=== PATIENT | female | born 1935 | race Caucasian/White ===

== ENCOUNTER 2023-10-06 15:02 | Emergency (ER) | payer MEDICARE, SELFPAY ==
[2023-10-06] VITALS (8 sets, daily range): BP systolic 132–153; BP diastolic 69–89; PULSE 68–118; RESP 14–28; TEMP 36.6; O2SAT 94–98; BMI 22.4
--- NOTE | 2023-10-06 15:36 | EX.ED.DYSGE1 ---
HPI <ANGÉLICA Barreto - Last Filed: 10/06/23 22:15> History of Present Illness Chief Complaint: Shortness of Breath Narrative Narrative: Patient is an 88-year-old female with history of hypertension, hyperlipidemia who is currently getting treated for multiple myeloma at the [facility]. Patient received a chemo shot every Sunday, last shot was 4 days ago, that was her first shot her neck shot is to be next Sunday. Patient states that she has been having a cough for 1 month, the cough and lung sounds have gotten worse over the last couple days and they are concerned for pneumonia. Patient denies any fever or chills, patient denies any nausea or vomiting. Patient states she feels generally well however just is having difficulty with a cough. PFS <ANGÉLICA Barreto - Last Filed: 10/06/23 22:15> [facility] Medical History (Updated 10/06/23 @ 16:50 by ANGÉLICA Barreto) Anemia Breast cancer, left breast Cardiac murmur Claudication Elevated LFTs Essential (primary) hypertension First degree AV block Heart disease History of cancer of left breast Hypercalcemia Metastasis to bone Multiple myeloma Non-rheumatic mitral regurgitation Nonrheumatic mitral (valve) prolapse Plasma cell disorder Pure hypercholesterolemia Screening for breast cancer Home Medications coenzyme Q10 100 mg capsule 100 mg PO DAILY 02/15/17 [History Last Taken Unknown] trazodone 50 mg tablet 50 mg PO DAILY PRN Pain 02/15/17 [History Last Taken Unknown] aspirin 81 mg tablet,delayed release 1 tab PO DAILY 03/02/20 [History Last Taken Unknown] alendronate 70 mg tablet (Fosamax) 70 mg PO QWEEK 08/09/20 [History Last Taken Unknown] cholecalciferol (vitamin D3) 25 mcg (1,000 unit) tablet 25 mcg PO DAILY 08/09/20 [History Last Taken Unknown] magnesium oxide 500 mg capsule 500 mg PO DAILY 09/11/22 [History Last Taken Unknown] Breast Prosthesis #1 ea 04/23/23 [Rx Last Taken Unknown] Mastectomy Bra #3 ea 04/23/23 [Rx Last Taken Unknown] acetaminophen 325 mg capsule (Tylenol) 650 mg PO Q6H PRN pain 07/12/23 [History Last Taken Unknown] ibuprofen 200 mg tablet 200 mg PO Q6H PRN pain 07/12/23 [History Last Taken Unknown] mnfxwidg-bbo-tvgkm acid 0.4 mg-lycopene 300 mcg-lutein 250 mcg tablet (Centrum Silver) 1 tab PO DAILY 08/16/23 [History Last Taken Unknown] tamoxifen 20 mg tablet See Rx Instructions .Route .COMPLEX #90 tabs 08/23/23 [Rx Last Taken Unknown] dexamethasone 4 mg tablet 20 mg (5 x 4 mg) PO QWEEK #20 tabs 09/06/23 [Rx Last Taken Unknown] amlodipine 2.5 mg tablet 2.5 mg PO DAILY #90 tabs 09/14/23 [Rx Last Taken Unknown] atorvastatin 20 mg tablet 20 mg PO QHS #90 tabs 09/14/23 [Rx Last Taken Unknown] ezetimibe 10 mg tablet 10 mg PO DAILY #90 tabs 09/14/23 [Rx Last Taken Unknown] losartan 100 mg tablet 100 mg PO QDAY #90 tabs 09/14/23 [Rx Last Taken Unknown] metoprolol succinate 25 mg tablet,extended release 24 hr 25 mg PO DAILY #90 tabs 09/14/23 [Rx Last Taken Unknown] acyclovir 400 mg tablet 400 mg PO Q12H 10/06/23 [History Last Taken Unknown] albuterol sulfate 90 mcg/actuation aerosol inhaler (Ventolin HFA) 2 puff inhalation Q4H PRN PRN Wheezing #6.7 grams 10/06/23 [Rx Last Taken Unknown] benzonatate 100 mg capsule 100 mg PO Q8H PRN PRN cough 10/06/23 [History Last Taken Unknown] lenalidomide 10 mg capsule (Revlimid) 10 mg PO DAILY 10/06/23 [History Last Taken Unknown] levofloxacin 750 mg tablet 750 mg PO DAILY #5 tabs 10/06/23 [Rx Last Taken Unknown] prochlorperazine maleate 10 mg tablet 10 mg PO Q6H PRN nausea and vomiting 10/06/23 [History Last Taken Unknown] Allergy/AdvReac Type Severity Reaction Status Date / Time No Known Allergies Allergy Verified 10/06/23 15:02 Family History Father Heart disease Sister Breast cancer Surgical History History of section History of hysterectomy Hx of left mastectomy S/P left mastectomy Social History (Updated 10/06/23 @ 15:27 by Nunu Hathaway) household members: none housing: house Smoking Status: Never smoker ROS <ANGÉLICA Barreto - Last Filed: 10/06/23 22:15> ROS ED ROS Narrative Constitutional: No fever, no chills. HEENT: No sore throat. No neck pain. No loss of vision. No rhinorrhea. Cardiovascular: No chest pain. No palpitations. No pedal edema. Respiratory: Positive for cough, wheezing, intermittent shortness of breath Abdominal: No abdominal pain. No nausea. No vomiting. Genitourinary: No dysuria. No hematuria. Musculoskeletal: No myalgias. No arthralgias. Neurologic: No headaches. No dizziness. No lightheadedness. Skin: No rash. No change in color. Psychiatric: No depression. No anxiety. EXAM <ANGÉLICA Barreto - Last Filed: 10/06/23 22:15> Physical Exam Narrative Exam Narrative: Afebrile. Vital signs noted. Patient appears to be generally well-appearing. Patient is in no distress, no conversational dyspnea. HEENT: Normocephalic. Atraumatic. PERRL, EOMI. Neck soft and supple. No point tenderness or step off. Cardiovascular: Regular rate and rhythm. No murmurs, rubs, or gallops appreciated. Respiratory: No tachypnea. Patient has bilateral expiratory wheezing, patient has had some crackles to the right lower lung base. Gastrointestinal: Abdomen soft, nontender, with normoactive bowel sounds. No rebound or guarding. Neurological: Awake. Alert. Nonfocal, nonlateralizing. Skin: No rash. Normal color. No pallor. Musculoskeletal: No pedal edema. Full range of motion extremities. Const Vital Signs: 10/06/23 15:03 10/06/23 15:25 10/06/23 15:45 Temperature 98 F Temperature Source Temporal Pulse Rate 73 71 Respiratory Rate 18 24 H Respiratory Effort Respiratory Depth Respiratory Pattern Blood Pressure 153/75 H 153/71 H Blood Pressure Mean 101 98 Pulse Ox 94 95 97 Oxygen Delivery Method Room Air Room Air Room Air 10/06/23 15:48 10/06/23 15:49 10/06/23 16:30 Temperature Temperature Source Pulse Rate 68 118 H Respiratory Rate 14 28 H Respiratory Effort Respiratory Depth Respiratory Pattern Blood Pressure 134/89 H Blood Pressure Mean 104 Pulse Ox 97 98 Oxygen Delivery Method Room Air Room Air 10/06/23 16:35 10/06/23 17:15 Temperature Temperature Source Pulse Rate 72 Respiratory Rate 18 Respiratory Effort Short of Breath Respiratory Depth Normal Respiratory Pattern Tachypnea Blood Pressure 132/69 H Blood Pressure Mean 90 Pulse Ox 96 Oxygen Delivery Method Room Air HEENT Reports moist mucous membranes <Dr. Petr Cardenas MD - Last Filed: 10/07/23 18:34> Physical Exam Const Vital Signs: 10/06/23 15:03 10/06/23 15:25 10/06/23 15:45 Temperature 98 F Temperature Source Temporal Pulse Rate 73 71 Respiratory Rate 18 24 H Respiratory Effort Respiratory Depth Respiratory Pattern Blood Pressure 153/75 H 153/71 H Blood Pressure Mean 101 98 Pulse Ox 94 95 97 Oxygen Delivery Method Room Air Room Air Room Air 10/06/23 15:48 10/06/23 15:49 10/06/23 16:30 Temperature Temperature Source Pulse Rate 68 118 H Respiratory Rate 14 28 H Respiratory Effort Respiratory Depth Respiratory Pattern Blood Pressure 134/89 H Blood Pressure Mean 104 Pulse Ox 97 98 Oxygen Delivery Method Room Air Room Air 10/06/23 16:35 10/06/23 17:15 Temperature Temperature Source Pulse Rate 72 Respiratory Rate 18 Respiratory Effort Short of Breath Respiratory Depth Normal Respiratory Pattern Tachypnea Blood Pressure 132/69 H Blood Pressure Mean 90 Pulse Ox 96 Oxygen Delivery Method Room Air MDM <ANGÉLICA Barreto - Last Filed: 10/06/23 22:15> [facility] Lab Data Labs: Laboratory Results - last 24 hr 10/06/23 15:44 WBC 5.2 RBC 3.44 L Hgb 10.6 L Hct 32.5 L MCV 94.5 MCH 30.8 MCHC 32.6 RDW Std Deviation 50.8 H RDW Coeff of Mann 14.6 Plt Count 180 MPV 9.7 Immature Gran % (Auto) 0.400 Neut % (Auto) 68.5 Lymph % (Auto) 22.3 [place] % (Auto) 8.2 Eos % (Auto) 0.4 Baso % (Auto) 0.2 Absolute Neuts (auto) 3.5 Absolute Lymphs (auto) 1.15 Nucleated RBC % 0 Sodium 134 L Potassium 3.8 Chloride 103 Carbon Dioxide 24.0 Anion Gap 7 BUN 13 Creatinine 0.74 Estim Creat Clear Calc 35.97 Est GFR (MDRD) Af Amer 96 Est GFR (MDRD) Non-Af 79 BUN/Creatinine Ratio 17.7 Glucose 108 H Calcium 8.4 L Radiography Diagnostic Testing: Clinical Impression(s) from Imaging Studies Chest X-Ray 10/06/23 16:05 IMPRESSION: Asymmetric interstitial thickening in the right lower lobe which may be consistent with pneumonia. Clinical correlation recommended Electronically Signed: Aubrey Ferreira MD at 16:38 EST Reading Location ID and State: [facility] / [place] Tel , Service support , Treatment and Re-Evaluation :: Patient appears generally well, patient appears nontoxic, vital signs are stable. Presenting to the emerged department with complaints of cough, shortness of breath. They are concerned for pneumonia. Differential diagnosis includes sepsis, community-acquired pneumonia, COPD exacerbation, CHF. Patient has no signs or symptoms of edema, no increased body weight. Patient will receive basic laboratory values, two-view chest x-ray. Patient will be given breathing treatments, oral steroids. Patient be reevaluated after treatments. The radiology exams ordered for this patient will be read by the emergency department attending. From these reads a plan of care will be put into place. Patient CBC was unremarkable, chronic anemia, patient's chemistries were unremarkable. Patient's chest x-ray showed right lower lobe pneumonia. At this time, patient meets no markers for sepsis, patient looks generally well. Patient is not hypoxic. Patient will be placed on Levaquin 750 mg daily for 5 days. Patient will follow-up closely outpatient. She is instructed return for any worsening cough, fever chills nausea vomiting. All questions answered, patient stable for discharge. <Dr. Petr Cardenas MD - Last Filed: 10/07/23 18:34> [facility] Narrative Medical decision making narrative: I have personally performed a face to face assessment of the patient and have reviewed the BRYCE Note. I performed a substantive portion of the visit including all aspects of the following. My peacock findings include: History: Patient has been coughing a little bit from months but over the last for 5 days it is change. No real sputum production. No chest pain. She has heard some sounds in her lung and wheezing and is concerned she may have pneumonia. She states she does not feel terribly sick. Exam: Patient is actually nontoxic. Her vitals look good. Her saturations are normal. She is not tachycardic or tachypneic. She does have some mild expiratory wheezing though. Medical Decision Making: Blood work showed mild anemia. Electrolytes are relatively unremarkable. Her x-ray does look like she may have a right lower middle lobe pneumonia. Final reading was similar. But patient would like to go home. She is feeling well. We will try her on Levaquin that has a high rate of absorption. We discussed reasons to return. We explained that although she looks good she is 88 years old we have to be cautious so she should have a low threshold to return. Lab Data Labs: Laboratory Results - last 24 hr 10/06/23 15:44 WBC 5.2 RBC 3.44 L Hgb 10.6 L Hct 32.5 L MCV 94.5 MCH 30.8 MCHC 32.6 RDW Std Deviation 50.8 H RDW Coeff of Mann 14.6 Plt Count 180 MPV 9.7 Immature Gran % (Auto) 0.400 Neut % (Auto) 68.5 Lymph % (Auto) 22.3 [place] % (Auto) 8.2 Eos % (Auto) 0.4 Baso % (Auto) 0.2 Absolute Neuts (auto) 3.5 Absolute Lymphs (auto) 1.15 Nucleated RBC % 0 Sodium 134 L Potassium 3.8 Chloride 103 Carbon Dioxide 24.0 Anion Gap 7 BUN 13 Creatinine 0.74 Estim Creat Clear Calc 35.97 Est GFR (MDRD) Af Amer 96 Est GFR (MDRD) Non-Af 79 BUN/Creatinine Ratio 17.7 Glucose 108 H Calcium 8.4 L Radiography Diagnostic Testing: Clinical Impression(s) from Imaging Studies Chest X-Ray 10/06/23 16:05 IMPRESSION: Asymmetric interstitial thickening in the right lower lobe which may be consistent with pneumonia. Clinical correlation recommended Electronically Signed: Aubrey Ferreira MD at 16:38 EST , Discharge Plan Triage Chief Complaint: Shortness of Breath ED Midlevel Provider: Shashank Croft ED Provider: Petr Cardenas Dx/Rx/DC Orders Clinical Impression: Pneumonia Instructions: ED Pneumonia (Adult) Prescriptions: New levofloxacin 750 mg tablet 750 mg PO DAILY Qty: 5 0RF albuterol sulfate [Ventolin HFA] 90 mcg/actuation HFA aerosol inhaler 2 puff inhalation Q4H PRN PRN (Reason: Wheezing) Qty: 6.7 0RF No Action alendronate [Fosamax] 70 mg tablet 70 mg PO QWEEK cholecalciferol (vitamin D3) 25 mcg (1,000 unit) tablet 25 mcg PO DAILY magnesium oxide 500 mg capsule 500 mg PO DAILY (DME) Breast Prosthesis See Rx Instructions .Route .MEDSUPPLY Qty: 1 0RF Rx Instructions: As directed (DME) Mastectomy Bra See Rx Instructions .Route .MEDSUPPLY Qty: 3 0RF Rx Instructions: As directed acetaminophen [Tylenol] 325 mg capsule 650 mg PO Q6H PRN (Reason: pain) ibuprofen 200 mg tablet 200 mg PO Q6H PRN (Reason: pain) Centrum Silver 0.4 mg-300 mcg- 250 mcg tablet 1 tab PO DAILY dexamethasone 4 mg tablet 20 mg PO QWEEK Qty: 20 1RF trazodone 50 MG tablet 50 mg PO DAILY PRN (Reason: Pain) coenzyme Q10 100 MG capsule 100 mg PO DAILY aspirin 81 MG tablet,delayed release (DR/EC) 1 tab PO DAILY acyclovir 400 mg tablet 400 mg PO Q12H Patient Comments: take 1 tablet by mouth twice a day benzonatate 100 mg capsule 100 mg PO Q8H PRN PRN (Reason: cough) Patient Comments: take 1 capsule by mouth every 8 hours if needed for cough lenalidomide [Revlimid] 10 mg capsule 10 mg PO DAILY prochlorperazine maleate 10 mg tablet 10 mg PO Q6H PRN (Reason: nausea and vomiting) Patient Comments: take 1 tablet by mouth every 6 hours if needed tamoxifen 20 mg tablet See Rx Instructions .ROUTE .COMPLEX Qty: 90 0RF Dose Instruction: take 3 tablets by mouth once daily Rx Instructions: take 3 tablets by mouth once daily amlodipine 2.5 mg tablet 2.5 mg PO DAILY Qty: 90 4RF atorvastatin 20 mg tablet 20 mg PO QHS Qty: 90 4RF ezetimibe 10 mg tablet 10 mg PO DAILY Qty: 90 4RF losartan 100 mg tablet 100 mg PO QDAY Qty: 90 4RF metoprolol succinate 25 mg tablet extended release 24 hr 25 mg PO DAILY Qty: 90 4RF Primary Care Provider: Lucía Schmitt NP Referrals: Lucía Schmitt NP, [employer] [Primary Care Provider] - Activity Restrictions/Additional Instructions: You need to take the antibiotic until finished. Use the albuterol inhaler. You need to follow-up with your PCP as well as your oncologist, if you get worsening fevers increase shortness of breath you need to return. Disposition Disposition: Home, Self Care Discharge Date/Time: 10/06/23 17:16
[2023-10-06] MEDS: Albuterol 2.5 MG/3 ML VIAL.NEB. INHALATION (15:46)
[2023-10-06] MEDS: Ipratropium/Albuterol Sulfate 3 ML AMPUL.NEB INHALATION (15:46)
[2023-10-06 15:54] LABS: Absolute Lymphocyte Count 1.15 X10^3/uL (0.83-4.51); Absolute Neutrophil Count 3.5 X10^3/uL (2.0-7.7); Basophil# 0.01 X10^3/uL; Basophil% 0.2 % (0-1); Eosinophil# 0.02 X10^3/uL; Eosinophils% 0.4 % (0-5); Hematocrit 32.5 % (37-47); Hemoglobin 10.6 g/dL (12.0-15.0); Lymphocyte # 1.15 X10^3/ul (0.83-4.51); Lymphocyte % 22.3 % (19-41); Mean Corp Hgb Conc 32.6 g/dL (32-36); Mean Corpuscular Hgb 30.8 pg (27.0-32.0); Mean Corpuscular Volume 94.5 fL (81-99); Mean Platelet Vol. 9.7 fl (6.2-12.0); Monocyte# 0.42 X10^3/uL; Monocyte% 8.2 % (0-10); NRBC Flagged by Analyzer 0 % (0-5); Neutrophil # 3.53 X10^3/uL (2.7-7.7); Neutrophil % 68.5 % (47-70); Platelet Count 180 K/mm3 (150-450); RBC Distribution Width CV 14.6 % (11.6-14.6); RBC Distribution Width SD 50.8 fl (35.1-43.9); Red Blood Count 3.44 M/mm3 (4.2-5.4); White Blood Count 5.2 K/mm3 (4.4-11.0)
--- NOTE | 2023-10-06 16:05 | RAD_ITS ---
STUDY: X-RAY CHEST REASON FOR EXAM: Female, 88 years old. cough TECHNIQUE: PA and lateral COMPARISON: None. FINDINGS: There is asymmetric interstitial thickening in the right lower lobe possibly representing pneumonia.. There is no demonstrated pleural abnormality. Normal size heart. Normal mediastinum and john. Normal visualized pulmonary arteries. Tortuous mildly calcified aortic arch and descending thoracic aorta. Dorsal spine and shoulders demonstrate degenerative change.. 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 There is no demonstrated abnormality of the visualized soft tissue structures of the upper abdomen. RAD/Chest PA and Lateral IMPRESSION: Asymmetric interstitial thickening in the right lower lobe which may be consistent with pneumonia. Clinical correlation recommended Electronically Signed: Aubrey Ferreira MD at 16:38 EST ,
--- OUTSIDE RECORDS SUMMARY | 2023-10-06 16:10 | XMS RPT_ITS | CCD ---
Author Name Unknown Address [address] [place] [address] Organization [facility] Care Team Providers Care Olive Packer Name Role Phone IVAN UM NURSE-FRONT OF HOUSE MANAGER, ALIREZA S Primary Care Physicia n IVAN UM NURSE-FRONT OF HOUSE MANAGER, ALIREZA S Attending Unava ilable IVAN UM NURSE-FRONT OF HOUSE MANAGER, ALIREZA S Primary Care Unava ilable ESTIVEN CLIFTON MD Attending Unavailable IVAN UM NURSE-FRONT OF HOUSE MANAGER, ALIREZA S Primary Care Unava ilable SOLEDAD FRONT OF HOUSE MANAGER, YUMIKO Attending Unavailable IVAN UM NURSE-FRONT OF HOUSE MANAGER, ALIREZA S Primary Care Unava ilable SOL[place]AD FRONT OF HOUSE MANAGER, YUMIKO Attending Unavailable IVAN UM NURSE-FRONT OF HOUSE MANAGER, ALIREZA S Primary Care Unava ilable JESENIA PINON Attending Unavailable IVAN UM NURSE-FRONT OF HOUSE MANAGER, ALIREZA S Primary Care Unava ilable ROCK UM NURSE-FRONT OF HOUSE MANAGER, ULISES Attending Unavailabl e IVAN UM NURSE-FRONT OF HOUSE MANAGER, ALIREZA S Primary Care Unava ilable RENETTA WAGNER Attending Unavailable IVAN UM NURSE-FRONT OF HOUSE MANAGER, ALIREZA S Primary Care Unava ilable IVAN UM NURSE-FRONT OF HOUSE MANAGER, ALIREZA S Attending Unava ilable IVAN UM NURSE-FRONT OF HOUSE MANAGER, ALIREZA S Primary Care Unava ilable IVAN UM NURSE-FRONT OF HOUSE MANAGER, ALIREZA S Attending Unava ilable IVAN UM NURSE-FRONT OF HOUSE MANAGER, ALIREZA S Primary Care Unava ilable IVAN UM NURSE-FRONT OF HOUSE MANAGER, ALIREZA S Attending Unava ilable IVAN UM NURSE-FRONT OF HOUSE MANAGER, ALIREZA S Primary Care Unava ilable Ivan, Alireza S Primary Care Provider [phone] Abdon Bryant MD Unavailable Traci Coles RN Unavailable ABDNO BRYANT Referring Unavailable IVAN, ALIREZA S Primary Care Unavailable ABDON BRYANT Referring Unavailable IVANALIREZA Primary Care Unavailable ABODN BRYANT Attending Unavailable IVANALIREZA Primary Care Unavailable ABDON BRYANT Referring Unavailable ALIREZA LOVE Primary Care Unavailable ALIREZA LOVE Primary Care Unavailable ALIREZA LOVE Primary Care Unavailable Allergies Allergy Classification Reported Allergen(s) Allergy Type Date of Onset Reaction(s) Facility (10 sources) Clemastine / Phenylpropanolamine; Translations: [clemastine-phenylpr opanolamine] Drug Allergy Unknown [facility] Work Phone: (10 sources) Sulfamethoxazole / Trimethoprim; Translations: [sulfamethoxazole-tr imethoprim] Drug Allergy Nausea (finding), Headache (finding) [facility] Work Phone: (10 sources) Trimethoprim; Translations: [trimethoprim] Drug Allergy Hives [facility] Work Phone: Medications Current Medications Medication Drug Class(es) Dates Sig (Normalized) Sig (Original) alendronic acid 70 mg oral tablet (17 sources) Bisphosphonate Start: 12-28-2022 alendronate 70 mg oral tablet Dose : 70 mg = 1 tab(s), Oral, qWeek, # 13 tab(s), 3 Refill(s), Pharmacy: [facility] #[id number], 155, cm, 12/28/22 14:24:00 EDT, Height, kg, 12/28/22 14:24:00 EDT, Dosing Weight Start Date: 12/28/22 Status: Ordered Completed/Discontinued Medications Medication Drug Class(es) Dates Sig (Normalized) Sig (Original) acyclovir 400 mg oral tablet (5 sources) Herpesvirus Nucleoside Analog DNA Polymerase Inhibitor, Herpes Simplex Virus Nucleoside Analog DNA Polymerase Inhibitor, Herpes Zoster Virus Nucleoside Analog DNA Polymerase Inhibitor Start: 09-27-2023 take 1 tablet by mouth twice daily acyclovir (ZOVIRAX) 400 mg tablet Take 1 tablet by mouth two times a day. 60 tablet 2 09/27/2023 Active Problems Problem Classification Problem Date Documented Date Episodic/Chronic Administrative/social admission (1 source) Patient encounter status; Translations: [Counseling, unspecified] 09-27-2023 Episodic Aortic; peripheral; and visceral artery aneurysms (5 sources) Carotid artery aneurysm 10-23-2022 Chronic Cancer of breast (10 sources) History of malignant neoplasm of breast 03-11-2020 Episodic Disorders of lipid metabolism (10 sources) Hyperlipidemia 12-18-2013 Chronic Essential hypertension (10 sources) Hypertensive disorder 12-18-2013 Chronic Genitourinary symptoms and ill-defined conditions (2 sources) Unspecified symptoms and signs involving the genitourinary system; Translations: [Unspecified symptoms and signs involving the genitourinary system] Onset: 06-05-2023 Episodic Heart valve disorders (10 sources) Mitral valve prolapse 12-18-2013 Chronic Malaise and fatigue (6 sources) Attacks of weakness 09-14-2022 Episodic Multiple myeloma (11 sources) Multiple myeloma; Translations: [Multiple myeloma not having achieved remission] Onset: 09-19-2023 09-19-2023 Chronic Osteoporosis (5 sources) Osteoporosis 12-28-2022 Chronic Other bone disease and musculoskeletal deformities (10 sources) Osteopenia 07-09-2019 Episodic Other hereditary and degenerative nervous system conditions (10 sources) Essential tremor 07-09-2019 Chronic Other lower respiratory disease (2 sources) Cough 02-08-2022 Episodic Other nervous system disorders (4 sources) Paresthesia 07-09-2019 Episodic Other nutritional; endocrine; and metabolic disorders (1 source) Other disorders of plasma-protein metabolism, not elsewhere classified; 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] Onset: 09-19-2023 Chronic Other skin disorders (10 sources) Loss of hair 07-10-2019 Episodic Residual codes; unclassified (2 sources) Sleep apnea 07-09-2019 Chronic Spondylosis; intervertebral disc disorders; other back problems (1 source) Lumbar spondylosis with myelopathy; Translations: [Other spondylosis with myelopathy, lumbar region] Chronic Spondylosis; intervertebral disc disorders; other back problems (20 sources) Chronic low back pain; Translations: [Radicular pain] 03-10-2021 Episodic Superficial injury; contusion (1 source) Contusion of chest 02-09-2022 Episodic Unclassified (10 sources) 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 (20 sources) Patient encounter status 03-11-2020 Results Test Name Value Interpretation Reference Range Facil ity Vital Signs Date Time Vital Sign Value Performing Clinician Faci lity 10-02-2023 12:00-0500 Body temperature 98.29 [degF] Treatment Wstr Work Phone: [facility] 10-02-2023 12:00-0500 Diastolic blood pressure 74 mm[Hg] Treatment Wstr Work Phone: [facility] 10-02-2023 12:00-0500 Heart rate 68 /min Treatment Wstr Work Phone: [facility] 10-02-2023 12:00-0500 Systolic blood pressure 156 mm[Hg] Treatment Wstr Work Phone: [facility] Encounters Encounter Date Encounter Type Care Provider Facility Start: 10-04-2023 Telephone encounter Abdon calixto MD Work Phone: Hematology/Oncology Procedures Date Procedure Procedure Detail Performing Clinician Start: 02-18-[address] JAMARCUS LUCIANO MD Plan of Treatment Date Care Activity Detail Author Start: 09-19-2026 Diabetes Screening Diabetes Screening [facility] Start: 09-27-2023 End: 12-27-2023 Chronic hepatitis differentiation between hepatitis B and C virus panel - Serum or Plasma HEP REMOTE PANEL BL Lab Routine Multiple myeloma not having achieved remission (HCC) Expected: 09/27/2023, Expires: 12/27/2023 [facility] Work Phone: Immunizations Immunization Date Immunization Notes Care Provider Valentine hayes 05-26-2023 influenza virus vaccine, unspecified formulation [facility] UM NURSE-FRONT OF HOUSE MANAGER [facility] Payers Date Payer Category Payer Unknown [employer] H[employer] POS [id number] 2023-Present [phone] [address] [place] [address] HMO [id number] 2022 Unknown [id number] 1934 Unknown [id number] 1934 Unknown [id number] 1934 Unknown [id number] 1934 Unknown [id number] 1934 Unknown [id number] 1934 Unknown [id number] 1934 Unknown [id number] 1934 Unknown [id number] 1934 Unknown [id number] 1934 Unknown [id number] Social History Date Type Detail Facility Start: 01-02-2019 End: 09-19-2023 Never smoked tobacco (finding) [facility] Sex Assigned At Female [facility] Start: 09-19-2023 Tobacco use and exposure Smokeless tobacco non-user [facility] Start: 09-19-2023 Alcohol intake Lifetime non-d rosa (finding) [facility] Start: 09-19-2023 History of Social function [facility] Start: 09-19-2023 Tobacco use panel [facility] National Score (1-100), lower number is lower risk 56 [facility] Start: 1935 Sex Assigned At Not on file [facility] Clinical Notes 02-08-2022 to 10-05-2023 Telephone Encounter - Traci Coels RN - 10/05/2023 9:22 AM ESTTelephone Encounter - Traci Coles RN - 10/04/2023 4:43 PM ESTTelephone Encounter - Shae Aguilar - 10/04/2023 4:25 PM EST Note Date & Type Note Facility 10-05-2023 Miscellaneous Notes Rick Care Coordination FOLLOW-UP NOTE Patient identified by name and date of . YES Spoke to patient Summary: (Reason for follow-up) Symptoms check Concerns: (New Barriers to care) Call to patient, I am better this am, I slept better b/c I didn't cough as much Patient did not go to the ED. She had her grand-daughter that lives near her bring her more Coricidin and she has been using that along with the Tessalon perles. She continues with cough, sounds more wet over the phone but patient denies productive. She can't say if what she coughs up has any color to it. Denies increase in shortness of breath unless she has a coughing spell. She states it feels more like she has a cold today. She agrees she has nasal congestion but not chest congestion. Patient took 2 Imodium after phone call yesterday and no diarrhea since that time. She ate breakfast this am: yogurt/blueberries/granola. She states she is drinking water. Denies N/V, urine is normal denies urinary symptoms/foul smell. States she has diapers for incontinence when coughing. Encouraged to continue with Coricidin, tessalon perles, push fluids to replace water lost yesterday and to stay hydrated, rest, take Imodium if more diarrhea, monitor for fever and reviewed when to call. Encourage her to call back in with any new issues/concerns and reminded of after hours number. Patient states understanding. Patient verbalized when to seek Medical Attention and an understanding of after- hours phone number and process: Yes Care Coordination Plan: No further follow up needed at this time Traci Coles RN October 05, 2023 [facility] Care Coordination FOLLOW-UP NOTE Patient identified by name and date of . YES Spoke to patient Summary: (Reason for follow-up) Dr. Bryant was given an update this afternoon. No further instructions at this time. Call to patient, states continues with cough, using Coricidin. Also, states shaking,chills. Checked temperature, 98.8F. She states diarrhea, can't tell me how many times, started this afternoon, runs out of me She has not taken any Imodium, reviewed doing and advised to take once of the phone. She agrees that she has some and will take. She states that she is not eating or drinking much. I instructed that she needs to push fluids if she can. She denies nausea/vomiting. Patient verbalized when to seek Medical Attention and an understanding of after- hours phone number and process: Yes Care Coordination Plan: Advised that she call her family and give them an update. Advise that she go to the ED. She ask if ok to go to hospital in [place] b/ it's closer and I agreed. Then she states that she may try and make it through the night and go in the morning. She states she needs to call family to get more supplies as she is out of Coricidin. I asked her to also give them an update and that she needs to be evaluated in ED, they could help with her symptoms and give her fluids if needed. She states understanding and will call family. This nurse will call patient in the am for an update. Traci Coles RN October 05, 2023 Patient called for status update of plan of care. She reports incontinence, diarrhea, body shakes. Please contact patient to discuss plan of care. Care Coordination Triage Note [facility] Situation: Patient reports Cough/Respiratory Concerns/SOB This nurse spoke to patient yesterday about her cough Background: Disease, current pertinent medications/treatments Velcade start 10/02/23 Assessment: COUGH Patient states cough started Tu night, all day yesterday and into today. When I talked with her on the phone yesterday am, she was not coughing during call but today she has a persistent dry cough that I can hear and keeping her from talking at times. Denies shortness of breath, fever/chills, checked her temperature normal , checked her BP this am normal , can't remember the numbers. Denies sore throat, nasal congestion other cold symptoms. She does state that her face is flushed, started yesterday. Her main c/o of all the coughing is causing incontinence. Do you have a cough? yes If yes, when did it start? pm Is your cough productive? no What color is the sputum? na Does your cough worsen with activity? constant now Does your cough worsen when you lie down? constant Are you taking anything for the cough? Coricidan per box instructions and Benzonatate every 8 hours If yes, what are you taking and has it helped? na Recommendations: Per RNCC, patient directed to: Will discuss with Dr. Bryant and call back with further instructions. Traci Coles RN October 04, 2023 9:46 AM Patient states she has had a chronic cough since treatment on Sunday and is causing incontinence. She is requesting to speak to Sherley documented in this encounter [facility] 10-03-2023 Miscellaneous Notes PA approved until 08/26/2024. Refill request sent to Dr. Bryant in a separate encounter. Dorothy Carroll LPN Patient enrolled for Revlimid via [employer]. PA submitted via fax d/t patient having [facility]. Revlimid Rx will go to [facility] once PA is approved. Pharmacy updated in [facility]. Dorothy Carroll LPN documented in this encounter [facility] 10-03-2023 Miscellaneous Notes CYCLE 1/DAY 1 POST TREATMENT CALL Patient returns call. States she is good Denies any issues or concerns. I am going to go play bridge today She usually plays 2x a week with her friends. Advised precaution if anyone is sick, not to go. Good handwashing, etc. She is going to take her nausea pills with her if needed. SYMPTOM ASSESSMENT Neuro: None CV/Resp: Cough: Yes; dry, not new and worse at night. She is going to try Coricidin for cough/cold tonight and see if that helps. She doesn't have any cold symptoms. Advised she could also try just a cough syrup. GI/: Appetite: no changes in appetite, appetite fair Fluid intake: encouraged good regular intake Integument: None Activity: Activity Level (0-100%): same as baseline Pain: No=0 (pain 0 on a scale of 0-10). Fever: No Chills: No Any new referrals needed? No Reinforced CURRENT treatment education based on current and anticipated symptoms. Discussed port/line care and patient verbalizes understanding: Not Applicable Patient instructed to contact office or after hours Hematology/Oncology fellow for: temperature ? 100.4; questions or concerns. Patient verbalized understanding of when to seek medical attention and after hours number protocol. Traci Coles RN CYCLE 1/DAY 1 POST TREATMENT CALL Today's date: October 03, 2023 Treatment Regimen: Velcade C1D1 Date: 10/02/23 Call to patient, message left to call me back and phone/contact number provided. Traci Coles RN documented in this encounter [facility] 09-28-2023 Miscellaneous Notes lab scheduled PSS: please add lab appointment on for 10/02/23 prior to treatment start. Hep B/CBC. No need to call patient, I asked her to come in around 1245pm to get lab. Sherley Coles RN Chemotherapy teaching completed today. To start 10/02/23. Will get patient set up for Revlimid that day too. Rx attached, please review/sign. Also added Hep B for baseline, never done before. Sherley Coles RN documented in this encounter [facility] 09-27-2023 Note HNO ID: [id number] Author: TRACI COLES RN Service: ? Author Type: Registered Nurse Type: Progress Notes Filed: 09/27/2023 11:45 Note Text: Patient teaching was completed over the phone. Traci Coles RN [facility] 09-27-2023 Note HNO ID: [id number] Author: TRACI COLES RN Service: ? Author Type: Registered Nurse Type: Progress Notes Filed: 09/27/2023 12:18 Note Text: Membership Administrator Pre Chemo Patient identified by name and date of . YES Confirmed date and time for chemotherapy ? YES Other appointments (labs, imaging) discussed? NO Discussed where to park (financial project manager), charge for parking YES Discussed where to report (building/floor) YES Any pre-medications ordered? YES, discussed Allopurinol Rx, start this weekend and Dexamethasone to take in the AM with food on treatment days Described the infusion room and what to expect. (What to wear, what to bring [iPad, books] amount of time treatment can take, meals and CC options for food) YES Note: chemo information to be mailed to son/DIL in [place] per patient request. Discussed whether the patient can eat prior to labs and treatment. YES Who is driving you to and from treatment? ARTHURLesly Discussed why it is important to bring someone with you. Yes, first treatment Resources discussed (music therapy, Art therapy, pet therapy, etc.) YES Education on chemotherapy (drug, side effects) discussed and that the patient will be receiving a C1D1 call within 7 days of treatment. YES Other topics discussed, interventions needed: States her right arm, hand to elbow, with weakness. States after blood work on 09/19/23, she thought she twisted her arm trying to get her arm out of her sleeve, she thought her symptoms would improve but they haven't. Denies swelling, discoloration, bruising. Site of blood drawn looks ok She is having weakness in pmo consultant and arm, not elbow or shoulder. Has full range of motion. She is wondering if she should be concerned. Patient advised to reach out to local PCP or Express care. She states she will call PCP. Traci Coles RN [facility] 09-27-2023 Note HNO ID: [id number] Author: TRACI COLES RN Service: ? Author Type: Registered Nurse Type: Progress Notes Filed: 09/27/2023 12:14 Note Text: ONCOLOGY PATIENT EDUCATION NOTE TOPIC: Chemotherapy, Medications: Velcade READINESS TO LEARN: COGNITIVE ABILITY: Alert and oriented MOTIVATION TO LEARN: Interested FAMILY SUPPORT: High - Very involved in pt care INSTRUCTION PROVIDED TO: Patient INSTRUCTION PROVIDED BY: Nurse Coordinator PATIENT LEARNS BEST BY: Multiple Methods FACTORS AFFECTING LEARNING: None PHYSICAL LIMITATIONS AFFECTING LEARNING: None LEARNING RESPONSE DIAGNOSIS: Multiple Myeloma METHOD OF INSTRUCTION: Individual instruction Written instruction - handouts Verbal instruction PATIENT/FAMILY RESPONSE: Verbalizes understanding of: CHEMOTHERAPY-Regimen, toxicity and side effects FOLLOW UP PLAN: Recommend - Recommend continued instruction and follow up as directed Contact information given. SUPPLEMENTAL MATERIAL: Written material was provided at this visit with the following information: - Chemotherapy education was provided by a pharmacist NO - Side effect management information was provided/discussed including but not limited to: abdominal discomfort, anemia, bowel habit changes, fatigue, infection, nausea/vomitting, neutropenia, peripheral neuropathy, thrombocytopenia YES - Provided important phone numbers and contacts during and after hours. YES - Provided information on symptoms that require immediate assistance. YES - Provided Chemotherapy when to call handouts YES - Preventing infection. YES - Treatment schedule and confirmation of appointment times. YES - Available support groups. YES - The importance of contraception during the course of chemotherapy NA - Neutropenic fever protocol discussed with patient, which included the importance of reporting any fever of 100.4F (38.0C) or greater to the healthcare team as noted on the provided wallet card and/or magnet. YES Time Spent: 60 minutes REFERRAL (RECOMMENDATION): Social Work, to call at a later time Traci Coles RN [facility] 09-27-2023 History of Presen t illness Narrative Patient teaching was completed over the phone. Traci Coles RN Membership Administrator Pre Chemo Patient identified by name and date of . YES Confirmed date and time for chemotherapy ? YES Other appointments (labs, imaging) discussed? NO Discussed where to park (financial project manager), charge for parking YES Discussed where to report (building/floor) YES Any pre-medications ordered? YES, discussed Allopurinol Rx, start this weekend and Dexamethasone to take in the AM with food on treatment days Described the infusion room and what to expect. (What to wear, what to bring [iPad, books] amount of time treatment can take, meals and CC options for food) YES Note: chemo information to be mailed to son/DIL in [place] per patient request. Discussed whether the patient can eat prior to labs and treatment. YES Who is driving you to and from treatment? Lesly GIBSON Discussed why it is important to bring someone with you. Yes, first treatment Resources discussed (music therapy, Art therapy, pet therapy, etc.) YES Education on chemotherapy (drug, side effects) discussed and that the patient will be receiving a C1D1 call within 7 days of treatment. YES Other topics discussed, interventions needed: States her right arm, hand to elbow, with weakness. States after blood work on 09/19/23, she thought she twisted her arm trying to get her arm out of her sleeve, she thought her symptoms would improve but they haven't. Denies swelling, discoloration, bruising. Site of blood drawn looks ok She is having weakness in pmo consultant and arm, not elbow or shoulder. Has full range of motion. She is wondering if she should be concerned. Patient advised to reach out to local PCP or Express care. She states she will call PCP. Traci Coles RN ONCOLOGY PATIENT EDUCATION NOTE TOPIC: Chemotherapy, Medications: Velcade READINESS TO LEARN: COGNITIVE ABILITY: Alert and oriented MOTIVATION TO LEARN: Interested FAMILY SUPPORT: High - Very involved in pt care INSTRUCTION PROVIDED TO: Patient INSTRUCTION PROVIDED BY: Nurse Coordinator PATIENT LEARNS BEST BY: Multiple Methods FACTORS AFFECTING LEARNING: None PHYSICAL LIMITATIONS AFFECTING LEARNING: None LEARNING RESPONSE DIAGNOSIS: Multiple Myeloma METHOD OF INSTRUCTION: Individual instruction Written instruction - handouts Verbal instruction PATIENT/FAMILY RESPONSE: Verbalizes understanding of: CHEMOTHERAPY-Regimen, toxicity and side effects FOLLOW UP PLAN: Recommend - Recommend continued instruction and follow up as directed Contact information given. SUPPLEMENTAL MATERIAL: Written material was provided at this visit with the following information: - Chemotherapy education was provided by a pharmacist NO - Side effect management information was provided/discussed including but not limited to: abdominal discomfort, anemia, bowel habit changes, fatigue, infection, nausea/vomitting, neutropenia, peripheral neuropathy, thrombocytopenia YES - Provided important phone numbers and contacts during and after hours. YES - Provided information on symptoms that require immediate assistance. YES - Provided Chemotherapy when to call handouts YES - Preventing infection. YES - Treatment schedule and confirmation of appointment times. YES - Available support groups. YES - The importance of contraception during the course of chemotherapy NA - Neutropenic fever protocol discussed with patient, which included the importance of reporting any fever of 100.4F (38.0C) or greater to the healthcare team as noted on the provided wallet card and/or magnet. YES Time Spent: 60 minutes REFERRAL (RECOMMENDATION): Social Work, to call at a later time Traci Coles RN documented in this encounter [facility] 09-27-2023 Miscellaneous Notes Done Cecilia Colon Please add patient for chemo education 09/27/23 at 1030am. No need to call patient. thank you Sherley Coles RN Request completed. Start email sent. PSS: please schedule patient to start Velcade this week or next. Patient prefers Tues or Thurs. Straight back to start (labs 09/19/23) CBC weekly CBC/CMP/OV with Dr. Bryant with Cycle 2 Sherley Coles RN Per Dr. Bryant, ok to start Velcade before getting Revlimid pills. Can add in with C2 Sherley Coles RN documented in this encounter [facility] 09-19-2023 Note HNO ID: [id number] Author: JOSIE ROJAS RT(R) Service: ? Author Type: Technologist Type: Progress Notes Filed: 09/19/2023 10:35 Note Text: Radiology Service Progress Note PATIENT NAME: Vee Fonseca DATE OF SERVICE: September 19, 2023 TIME: 10:34 AM PATIENT IDENTITY VERIFICATION COMPLETED USING TWO (2) IDENTIFIERS: Name and Date of confirmed by patient verbally. FALL SCREENING: Has the patient had 2 falls in the last year or 1 fall with injury or currently using an Ambulatory Assistive Device (Walker, Cane, Wheelchair, Crutches, etc.)? Yes, Patient High Risk for Falls What interventions were put in place to prevent falls during this visit? Increased Observations by Caregivers PATIENT GENDER DATA: Female. status: : No status: NO. PATIENT RELEVANT IMPLANT DATA REVIEWED: Not Applicable RADIOLOGY DEPARTMENT: General X-ray: Exam(s) Completed: Lower Extremity X-Ray(s): Femur, Bilateral PERIPHERAL IV DATA: Not applicable SIGNED BY: RT Mei(R) September 19, 2023 10:34 AM [facility] 09-19-2023 Note HNO ID: [id number] Author: ABDON BRYANT MD Service: ? Author Type: Physician Type: Progress Notes Filed: 09/19/2023 15:39 Note Text: HISTORY OF PRESENT ILLNESS: Vee Fonseca is a 88 year old female here for second opinion re lytic bone lesions found on CT scan. She has remote history of breast cancer dx 1996 stage I, HR+/Her2+. Had mastectomy followed by 5 years tamoxifen. Has done well till now, very healthy active lady. [place] dyspneic and unsteady went to ER, CT chest done showed lytic bone lesions. Also noted hypercalcemia. She was referred to [facility] oncology, concern for recurrent breast cancer was raised, actually they started treatment with herceptin and tamoxifen prior to biopsy. Biopsy of iliac bone was done 08-08-23, showed plasma cell myeloma plasmablastic variant. She is here for opinion on her situation. She's had no other biopsies, no evidence of metastatic breast cancer per se. MRI brain done, ?atypical meningiomas CLINICAL IMPRESSION: Remote history breast cancer, no evidence of this currently Now with lytic bone lesions, biopsy of lesion shows myeloma RECOMMENDATION/PLAN: 1. Stop tamoxifen and herceptin 2. Plan VRd, monthly zometa 3. Labs as ordered 4. Will see if [facility] radiology can render opinion on MRI Written and verbal health teaching given to patient, patient verbalizes understanding and agrees with treatment plan. PAST MEDICAL HISTORY Diagnosis Date Breast cancer (HCC) Essential hypertension PAST SURGICAL HISTORY Procedure Laterality Date SECTION HX 1957 SECTION SINGLE 1959 MASTECTOMY, SIMPLE, COMPLETE Left TOTAL ABDOM HYSTERECTOMY FAMILY HISTORY Problem Relation Age of Onset Cancer Sister Pancreatic Cancer Brother Social History Tobacco Use Smoking status: Never Smokeless tobacco: Never Vaping Use Vaping Use: Never used Substance Use Topics Alcohol use: Never Drug use: Never ALLERGIES: ALLERGIES No Known Allergies CURRENT OUTPATIENT MEDICATIONS: losartan (COZAAR) 100 mg tablet Take 100 mg by mouth once daily. traZODone (DESYREL) 100 mg tablet Take 50 mg by mouth daily at bedtime. alendronate (FOSAMAX) 70 mg tablet Take 70 mg by mouth one time a week. In AM with cup of water on empty stomach. Nothing else by mouth and stay upright for 30 min. ubidecarenone Q-10 (CO Q-10) 10 mg cap Take 10 mg by mouth once daily. tamoxifen (NOLVADEX) 20 mg tablet Take 20 mg by mouth once daily. 3 tablets daily dexAMETHasone (DECADRON) 1 mg tablet Take 4 mg by mouth one time a week. 5 tablets weekly DIOVAN 160 MG TAB Take 160 mg by mouth once daily. NORVASC 2.5 MG TAB Take 2.5 mg by mouth once daily. METOPROLOL 50 MG TAB Take 25 mg by mouth once daily. ZETIA 10 MG TAB Take 10 mg by mouth once daily. THERAPEUTIC MULTIVITAMIN TAB Take 1 tablet by mouth once daily. LIPITOR 20 MG TAB Take 40 mg by mouth once daily. ASPIRIN 81 MG TAB Take 81 mg by mouth once daily. REVIEW OF SYSTEMS: GENERAL: No fever, night sweats, weight loss or malaise. All other reviewed and negative other than HPI. PHYSICAL EXAMINATION: VITAL SIGNS: BP 156/68 Pulse 58 Temp 99.1 Ht 5' .236 (1.53m) Wt 121 lb (54.9kg) SpO2 99% BMI 23.45 kg/(m2). GENERAL APPEARANCE: Well appearing, in no acute distress, alert and oriented x3, well-hydrated, well nourished. I spent a total of 60 minutes on the date of the service which included preparing to see the patient, [id number] patient care, completing clinical documentation, obtaining and/or reviewing separately obtained history, counseling and educating the patient/family/caregiver, ordering medications, tests, or procedures, communicating with other HCPs (not separately reported), independently interpreting results (not separately reported), communicating results to the patient/family/caregiver, and care coordination (not separately reported). Electronically Signed: Abdon Bryant MD September 19, 2023 9:24 AM [facility] 06-07-2023 Note . MICRO - Microbiology PROCEDURE: Urine Culture [*1] SOURCE: Urine, Clean Catch BODY SITE: COLLECTED DATE/TIME: 06/05/2023 16:56 EDT RECEIVED DATE/TIME: 06/05/2023 20:45 EDT START DATE/TIME: 06/05/2023 20:45 EDT FREE TEXT SOURCE: FINAL REPORTS Final Report [] Verified Date/Time/Personnel: 06/07/2023 08:17 EDT >100,000 cfu/ml Escherichia coli PRELIMINARY REPORTS Preliminary Report [] Verified Date/Time/Personnel: 06/06/2023 11:01 EDT >100,000 cfu/ml Escherichia coli IZABEL to follow SUSCEPTIBILITY RESULTS Escherichia coli Antibiotic IZABEL Dilut IZABEL Inter Ampicillin <=8 Susceptible Ampicillin/ <=4/2 Susceptible Sulbactam Aztreonam <=4 Susceptible Cefazolin <=2 Susceptible Ciprofloxacin <=0.25 Susceptible Ertapenem <=0.5 Susceptible Gentamicin <=2 Susceptible Imipenem <=1 Susceptible Levofloxacin <=0.5 Susceptible Meropenem <=1 Susceptible Minocycline <=4 Susceptible Nitrofurantoin <=32 Susceptible Trimethoprim/ <=0.5/9.5 Susceptible Sulfa Performing Locations *1: This test was performed at: [facility], [address] [place] [address], [id number] , [facility] ([place]) 05-17-2023 Note ORIGINAL EXAMINATION: CT OF THE ABDOMEN AND PELVIS WITH CONTRAST 05/17/2023 10:05 am TECHNIQUE: CT of the abdomen and pelvis was performed with the administration of intravenous contrast. Multiplanar reformatted images are provided for review. Automated exposure control, iterative reconstruction, and/or weight based adjustment of the mA/kV was utilized to reduce the radiation dose to as low as reasonably achievable. COMPARISON: Ultrasound abdomen 05/03/2023 HISTORY: ORDERING SYSTEM PROVIDED HISTORY: Reason for Exam: ABN FINDINGS OF BLOOD CHEMISTRY FINDINGS: Bilateral lower lobe atelectasis. Bilateral small Bochdalek hernias. The visualized portions of the liver, gallbladder, spleen, adrenal glands, pancreas are within normal limits. Symmetric bilateral nephrograms. Subcentimeter left renal hypodensities are too small to be characterized. The bladder is grossly unremarkable. The uterus is surgically absent. No free fluid in the pelvis. Small hiatal hernia. Moderate colonic diverticulosis with inflammatory stranding and wall thickening involving the distal descending colon and proximal sigmoid colon consistent with mild acute diverticulitis. No drainable fluid collection or free air. No lymphadenopathy. Atherosclerosis of the aorta without aneurysmal dilation. Small fat containing right inguinal hernia. Mild grade 1 anterolisthesis of L4 on L5. Lucencies in the bilateral ileum which may represent osseous demineralization. Moderate degenerative changes. IMPRESSION: Mild acute diverticulitis of the distal descending and proximal sigmoid colon. No drainable fluid collection or free air. I have personally reviewed the images of this examination and agree with the resident's findings and interpretation. Interpreted by: Abhijit Brooks MD Preliminary Report By: Escobar Pressley Electronically signed By Abhijit Brooks MD Dictated Date: 05/17/2023 10:12:51 AM Prelim Date: 05/17/2023 2:36:41 PM Sign Date: 05/17/2023 2:36:41 PM Ordering Provider: [facility] 05-03-2023 Note ORIGINAL EXAMINATION: COMPLETE ABDOMINAL ULTRASOUND05/03/2023 8:24 am ULTRASOUND ABDOMEN COMPLETE, COMPARISON: None HISTORY: ORDERING SYSTEM PROVIDED HISTORY: Reason for Exam: R79.89 OTHER SPECIFIED ABN FINDINGS OF BLOOD CHEMISTRY; ABN LIVER FUNCTIONS, FINDINGS: The liver is normal in size and echogenicity. There is questionable mild coarsening of the liver echotexture. The main portal vein is patent with antegrade flow. No suspicious focal liver lesion is seen. There is no intrahepatic bile duct dilatation. The common duct is 5.7 mm at the airam hepatis. The gallbladder is sonographically normal without calculus, wall thickening or tenderness. The visualized pancreas is unremarkable but some portions are obscured by bowel gas artifacts. The spleen is normal in size and echogenicity. No ascites. Limited survey images of the kidneys show normal cortical thickness and echogenicity and no pelvicaliectasis. . Visualized IVC and aorta are not abnormally dilated. IMPRESSION: Questionable mild coarsening of the liver echotexture that may indicate diffuse hepatocellular disease or may simply be artifactual. The remainder of the study is within normal limits. Interpreted by: Rajesh Meraz MD Preliminary Report By: Rajesh Meraz MD Electronically signed By Rajesh Meraz MD Dictated Date: 05/03/2023 11:00:29 AM Prelim Date: 05/03/2023 11:02:05 AM Sign Date: 05/03/2023 11:02:05 AM Ordering Provider: [facility] 02-08-2022 Evaluation + Plan note Future Scheduled TestsXR Ribs 2 Views Right/PA Chest (AO) 02/08/22 [facility] 02-08-2022 Evaluation + Plan note Future Scheduled TestsXR Ribs 2 Views Right/PA Chest (AO) 02/08/22MA Mammo Screening Bilateral w/ Pawel 02/17/22 [facility] Evaluation + Plan note No data available for this section [facility] documented in this encounter [facility] note* Diagnosis Multiple myeloma not having achieved remission (HCC)- Primary Multiple myeloma, without mention of having achieved remission documented in this encounter [facility] note* Diagnosis Multiple myeloma not having achieved remission (HCC)- Primary Multiple myeloma, without mention of having achieved remission documented in this encounter [facility] Discharge instructions No data available for this section [facility] Progress note No data available for this section [facility] Summary Purpose Family History No Family History Records Found Advance Directives No Advanced Directives Records FoundNo Advanced Directives Records Found Additional Source Comments Care Team (unrecognized sect ion and content) Olive Packer Relationship Specialty Start Date End Date Alireza Love [address] [place] [address] PCP - General Family Medicine 09/19/23 Abdon Bryant MD [address] [place] [address] Hematology/Oncology 09/20/23 Traci Coles, TIFFANY [address] [place] [address] Specialty Membership Administrator Hematology/Oncology 09/20/23 Olive Packer Relationship Specialty Start Date End Date Alierza Love [address] [place] [address] PCP - General Family Medicine 09/19/23 Abdon Bryant MD [address] [place] [address] Hematology/Oncology 09/20/23 Traci Coles RN [address] [place] [address] Specialty Membership Administrator Hematology/Oncology 09/20/23 Olive Packer Relationship Specialty Start Date End Date Alireza Love [address] [place] [address] PCP - General Family Medicine 09/19/23 Abdon Bryant MD [address] [place] [address] Hematology/Oncology 09/20/23 Traci Coles RN [address] [place] [address] Specialty Membership Administrator Hematology/Oncology 09/20/23 Olive Packer Relationship Specialty Start Date End Date Alireza [place] [address] [place] [address] (Work) PCP - General Family Medicine 09/19/23 Abdon Bryant MD [address] [place] [address] Hematology/Oncology 09/20/23 Traci Coles RN [address] [place] [address] Specialty Membership Administrator Hematology/Oncology 09/20/23 Care Team (unrecognized sect ion and content) Care Team Personnel Name: ALIREZA LOVE UM NURSE-FRONT OF HOUSE MANAGER Position: P4 Advanced Practice Nurse Med Service: Employed Provider Member Role: Primary Care Physician Address: Address: [address] [place] [address]- [place] Care Team Related Persons Name: JALEN FONSECA Address: [address] [place], [place] [id number] Name: JALEN FONSECA Address: Home [address] [place], [place] [id number] Care Team Personnel Name: ALIREZA LOVE Jen RICHARDSON-FRONT OF HOUSE MANAGER Position: P4 Advanced Practice Nurse Member Role: Primary Care Physician Address: Address: [address] [place] [address] Care Team Related Persons Name: JALEN FONSECA Address: Home [address] [place], [place] [id number] Name: JALEN FONSECA Address: Home [address] [place], [place] [id number] INFORMATION SOURCE (unrecogn ized section and content) DATE CREATED AUTHOR AUTHOR'S ORGANIZ ATION 10/04/2023 [facility] Source Comments (unrecognize d section and content) In the event this informatio n is protected by the Federal Confidentiality of Alcohol and Drug Abuse Patient Records regulations: The Federal rules restrict any use of the information to criminally investigate or prosecute any alcohol or drug abuse patient.[facility] the event this information is protected by the Federal Confidentiality of Alcohol and Drug Abuse Patient Records regulations: The Federal rules restrict any use of the information to criminally investigate or prosecute any alcohol or drug abuse patient.[facility] the event this information is protected by the Federal Confidentiality of Alcohol and Drug Abuse Patient Records regulations: The Federal rules restrict any use of the information to criminally investigate or prosecute any alcohol or drug abuse patient.[facility] the event this information is protected by the Federal Confidentiality of Alcohol and Drug Abuse Patient Records regulations: The Federal rules restrict any use of the information to criminally investigate or prosecute any alcohol or drug abuse patient.[facility] the event this information is protected by the Federal Confidentiality of Alcohol and Drug Abuse Patient Records regulations: The Federal rules restrict any use of the information to criminally investigate or prosecute any alcohol or drug abuse patient.[facility] the event this information is protected by the Federal Confidentiality of Alcohol and Drug Abuse Patient Records regulations: The Federal rules restrict any use of the information to criminally investigate or prosecute any alcohol or drug abuse patient.[facility] the event this information is protected by the Federal Confidentiality of Alcohol and Drug Abuse Patient Records regulations: The Federal rules restrict any use of the information to criminally investigate or prosecute any alcohol or drug abuse patient.[facility] Reason for Visit (unrecogniz ed section and content) Reason Comments New Medication Reason Comments Chemotherapy Treatment Specialty Diagnoses / Procedures Referred By Contac t Referred To Contact Diagnoses Multiple myeloma not having achieved remission (HCC) Procedures [place] [address] [place] [address] Jan [facility] [address] [place] [address] Referral ID Status Reason Start Date Expiration Date V isits Requested Visits Authorized [id number] Authorized 09/19/2023 08/26/2024 99 99 Reason Comments Care Coordination CYCLE 1/DAY 1 POST T REATMENT CALL Reason Comments Insurance Authorization Revlimid Reason Comments Care Coordination Cough Inactive Administered Medications - up to 3 most recent administrations Administered Medications (un recognized section and content) FOR RECORDS PERTAINING TO PATIENTS WHO ARE OR HAVE BEEN ENROLLED IN A CHEMICAL DEPENDENCY/SUBSTANCEABUSE PROGRAM, SOME INFORMATION MAY BE OMITTED. This clinical summary was aggregated from multiple sources. Caution should be exercised in using it in the provision of clinical care. This summary normalizes information from multiple sources, and as a consequence, information in this document may materially change the coding, format and clinical context of patient data. In addition, data may be omitted in some cases. CLINICAL DECISIONS SHOULD BE BASED ON THE PRIMARY CLINICAL RECORDS. [employer] provides no warranty or guarantee of the accuracy or completeness of information in this document.
[2023-10-06 16:13] LABS: Anion Gap 7 (5-15); BUN 13 mg/dL (7-18); BUN/Creat Ratio 17.7 RATIO (10-20); Calcium,Total 8.4 mg/dL (8.5-10.1); Chloride 103 mmol/L (98-107); Creatinine, Serum 0.74 mg/dL (0.55-1.02); EST Glomerular Filtration Rate 79 mL/min (>60); Est Glom Filt Rate - Afr Amer 96 mL/min (>60); Estimated Creatinine Clearance 35.97 ml/min; Glucose 108 mg/dL (74-106); Potassium 3.8 mmol/L (3.5-5.1); Sodium Level 134 mmol/L (136-145)
[2023-10-06] MEDS: predniSONE 20 MG Tablet 40 MG PO (16:28)
[2023-10-06] MEDS: 0.9% Normal Saline (500mL Bag) 500 ML 999 ML IV (16:28)
[2023-10-06] MEDS: Albuterol Sulfate 8 gm Inhaler (60 puffs) 2 PUFF INHALATION (16:56)
[2023-10-06] MEDS: levoFLOXacin 750 MG Tablet PO (17:04)
== END 2023-10-06 17:16 | disposition home or self-care (01) ==
PROVIDERS: Nurse Practitioner; Emergency Provider Emergency Medicine; PCP Nurse Practitioner Primary Care; Visit Provider Emergency Medicine
DX: J18.9 Pneumonia, unspecified organism (principal); C90.00 Multiple myeloma not having achieved remission; I10 Essential (primary) hypertension; D64.9 Anemia, unspecified; E78.00 Pure hypercholesterolemia, unspecified
CPT/HCPCS: 71046; 80048; 85025; 87631; 93005; 94640; 96360; 99284; J7040; A4216